=== PATIENT | male | born 1945 | race Two or more races ===

== ENCOUNTER 2019-03-01 17:30 | Emergency (ER) | payer MEDICAID, MEDICARE ==
--- NOTE | 2019-03-01 18:20 | ER Document Report ---
ED General - General Chief Complaint: Fall Stated Complaint: FALL/RIB PAIN Time Seen by Provider: 03/01/19 18:04 Primary Care Provider: LUÍS MEZA MD [Primary Care Provider] - Follow up in 3-5 days Notes: Patient is a 74-year-old male with history of end-stage renal disease on dialysis that presents to the emergency department for chief complaint of rib pain after fall. Patient apparently was walking with his walker trying to get back into the house and there is a small lip with a walker, he started losing his balance and fell backwards onto his right side. He is complaining of 7 out of 10 pain in the right ribs mainly in the mid posterior aspect. Describes as a constant aching worse with a deep breath. He did hit his head, but denies loss of consciousness. Denies having any neck pain, numbness, weakness or tingling. He denies any pain in his legs, denies any numbness, tingling or weakness in his upper or lower extremities. Denies any bowel or bladder incontinence. Past Medical History: End-stage renal disease on dialysis, hypertension Past Surgical History: Dialysis graft in the left upper extremity Social History: Lives at home with family, no current tobacco, alcohol or drug u se. Family History: Reviewed and noncontributory for presenting illness Allergies: Reviewed, see documented allergy list. REVIEW OF SYSTEMS: Other than noted above, the 12 point review of systems was reviewed with the patient and were negative, all pertinent findings are included in the HPI. PHYSICAL EXAMINATION: Vital signs reviewed, nursing noted reviewed. GENERAL: Elderly male, appears to be uncomfortable, but no acute distress HEAD: Atraumatic, normocephalic. EYES: Eyes appear normal, extraocular movements intact, sclera anicteric, conjunctiva are normal. ENT: nares patent, oropharynx clear without exudates. Moist mucous membranes. NECK: Normal range of motion, supple without lymphadenopathy LUNGS: Bilateral mild expiratory wheezing, suspect secondary to pulmonary edema, no acute respiratory distress however There is a right-sided posterior lateral rib tenderness to palpation, along ribs 7 through 10. No ecchymosis, or flail chest noted. HEART: Regular rate and rhythm without murmurs ABDOMEN: Soft, nontender, normoactive bowel sounds. No rebound, guarding, or rigidity. No masses appreciated. EXTREMITIES: Nontender, good range of motion, no pitting or edema. There is a left upper extremity dialysis graft present NEUROLOGICAL: No focal neurological deficits. Moves all extremities spontaneously Motor and sensory grossly intact on exam. PSYCH: Normal mood, normal affect. SKIN: Warm, Dry, normal turgor, no rashes or lesions noted on exposed skin Past Medical History - Social History Smoking Status: Former Smoker Family History: Reviewed & Not Pertinent Patient has suicidal ideation: No Patient has homicidal ideation: No Renal/ Medical History: Denies: Hx Peritoneal Dialysis Physical Exam - Vital signs Vitals: Temp Pulse Resp BP Pulse Ox 98.0 F 107 H 21 H 146/73 H 92 03/01/19 17:36 03/01/19 17:36 03/01/19 17:36 03/01/19 17:36 03/01/19 17:36 Course - Re-evaluation Re-evalutation: Patient seen and examined vital signs reviewed. Laboratory data and imaging were ordered as appropriate for the patient's presenting symptoms and complaint, with consideration of any critical or life threatening conditions that may be associated with their obtained history and exam as noted above. Patient was treated with oxy IR 5 mg for pain, and given incentive spirometer Results were reviewed when available and demonstrated 3 consecutive rib fractures in the right, the eighth ninth and 10th ribs. No pneumothorax., CT of the head and cervical spine were negative for acute fracture or injury or acute intracranial abnormality. The patient was re-evaluated and was stable, we did try to ambulate the patient, however he was not able to, and was still having pain is given an additional dose of oxycodone 5 mg p.o. Evaluation was most consistent with fall, closed head injury and the patient on Coumadin, and 3 consecutive rib fractures Results were discussed with the patient at this point after careful consideration I feel that that patient should be transferred to [facility], discussed with Dr. Pak, due to trauma patient, with 3 consecutive rib fractures. This was discussed with the patient that it is in the best interest for their care to be transferred, the risks and benefits of transfer were discussed, including but not limited to clinical deterioration during transport, respiratory distress, and potential for traumatic injuries. Patient agreed with this plan of care. *Note is created using voice recognition software and may contain spelling, syntax or grammatical errors. Ribs w/Chest X-Ray 03/01/19 18:05 IMPRESSION: Cardiomegaly. Cannot exclude pulmonary edema. Right rib fractures as described. Cervical Spine CT 03/01/19 18:30 IMPRESSION: Degenerative disc disease. Mild facet arthropathy. No acute finding. Head CT 03/01/19 18:30 IMPRESSION: MICROVASCULAR ISCHEMIA AND GENERALIZED ATROPHY. NO ACUTE IMAGING FINDINGS IN THE BRAIN. LEFT MAXILLARY SINUS DISEASE. EVIDENCE OF ACUTE STROKE: NO. Laboratory 03/01/19 03/01/19 03/01/19 23:30 23:30 23:30 WBC 7.4 RBC 3.26 L Hgb 9.6 L Hct 30.2 L MCV 93 MCH 29.4 MCHC 31.7 L RDW 20.7 H Plt Count 121 L Seg Neutrophils % 87.4 H Lymphocytes % 6.9 L Monocytes % 5.5 Eosinophils % 0.0 Basophils % 0.2 Absolute Neutrophils 6.5 Absolute Lymphocytes 0.5 Absolute Monocytes 0.4 Absolute Eosinophils 0.0 Absolute Basophils 0.0 PT 14.7 INR 1.10 Sodium 138.5 Potassium 5.2 H Chloride 98 Carbon Dioxide 30 Anion Gap 11 BUN 32 H Creatinine 4.72 H Est GFR ( Amer) 15 L Est GFR (Non-Af Amer) 12 L Glucose 184 H Calcium 8.8 Total Bilirubin 0.9 Direct Bilirubin 0.7 H Neonat Total Bilirubin Not Reportable Neonat Direct Bilirubin Not Reportable Neonat Indirect Bili Not Reportable AST 28 ALT 26 Alkaline Phosphatase 160 H Total Protein 7.9 Albumin 3.6 - Vital Signs Vital signs: Temp Pulse Resp BP Pulse Ox 99.0 F 105 H 15 136/87 H 95 03/01/19 23:43 03/01/19 23:43 03/01/19 23:43 03/01/19 23:43 03/01/19 23:43 - Laboratory Result Diagrams: 03/01/19 23:30 03/01/19 23:30 Laboratory results interpreted by me: 03/01/19 03/01/19 23:30 23:30 RBC 3.26 L Hgb 9.6 L Hct 30.2 L MCHC 31.7 L RDW 20.7 H Plt Count 121 L Seg Neutrophils % 87.4 H Lymphocytes % 6.9 L Potassium 5.2 H BUN 32 H Creatinine 4.72 H Est GFR ( Amer) 15 L Est GFR (Non-Af Amer) 12 L Glucose 184 H Direct Bilirubin 0.7 H Alkaline Phosphatase 160 H Procedures - Joint Reduction/Fracture Care Right Notes: Fracture care with incentive spirometry and pain control rendered in the emergency department of right rib fractures 8,9, and 10. Critical Care Note - Critical Care Note Total time excluding time spent on procedures (mins): 35 Comments: Critical care time 35 minutes exclusive from separate billable procedures for a patient requiring complex medical decision making, and high potential for clinical deterioration. The patient on Coumadin, with close head injury, trauma patient with multiple rib fractures, requiring transfer to tertiary facility. Time spent obtaining history from patient or surrogate, discussions with consultants, development of treatment plan with patient or surrogate, evaluation of patient's response to treatment, examination of patient, ordering and performing treatments and interventions, ordering and review of laboratory studies, re-evaluation of patient's condition, ordering and review of radiographic studies and review of old charts Discharge - Discharge Clinical Impression: Ribs, multiple fractures Qualifiers: Encounter type: initial encounter Fracture type: closed Laterality: right Qualified Code(s): S22.41XA - Multiple fractures of ribs, right side, initial encounter for closed fracture Condition: Stable Disposition: [facility] Additional Instructions: Please use the incentive spirometer, 10 times every hour, to reduce the risk of pneumonia, please take the pain medication as directed, so that you are able to take nice deep breaths. Please follow-up with your primary care physician in 2 to 3 days to be checked upon. If you have worsening pain or is not controlled at home or if you develop worsening breathing issues, or fever please return to the emergency department sooner. Prescriptions: Oxycodone HCl [Oxycontin Ir 5 Mg Tablet] 5 mg PO Q6H PRN #15 tablet PRN Reason: rib pain Referrals: LUÍS MEZA MD [Primary Care Provider] - Follow up in 3-5 days
[2019-03-01] MEDS ORDERED: OXYCODONE HCL IR 5 MG TABLET PO ONE ×2 (18:30→21:40)
--- NOTE | 2019-03-01 19:21 | RADIOLOGY REPORT (SQ) ---
EXAM DESCRIPTION: RIBS RIGHT W/PA CHEST COMPLETED DATE/TIME: 03/01/2019 6:23 pm REASON FOR STUDY: fall, right rib pain COMPARISON: None. TECHNIQUE: Frontal view of the chest and additional views of the right ribs acquired. NUMBER OF VIEWS: Three view. LIMITATIONS: None. FINDINGS: FRONTAL CXR: Cardiomegaly. Pulmonary vascular congestion. Cannot exclude pulmonary edema . RIBS: There are fractures of the right 8th, 9th, and 10th ribs. OTHER: No other significant finding. IMPRESSION: Cardiomegaly. Cannot exclude pulmonary edema. Right rib fractures as described. COMMENT: SITE OF TRAUMA/COMPLAINT MARKED/STAMP COMPLETED: No TECHNICAL DOCUMENTATION: JOB ID: [id number] [employer]- All Rights Reserved Reading location - IP/workstation name: [email or web address]
--- NOTE | 2019-03-01 19:27 | RADIOLOGY REPORT (SQ) ---
EXAM DESCRIPTION: CT HEAD WITHOUT COMPLETED DATE/TIME: 03/01/2019 6:58 pm REASON FOR STUDY: fall, head injury on coumadin COMPARISON: None. TECHNIQUE: Axial images acquired through the brain without intravenous contrast. Images reviewed wi th bone, brain and subdural windows. Additional sagittal and coronal reconstructions were generated. Images stored on PACS. All CT scanners at this facility use dose modulation, iterative reconstruction, and/or weight based d osing when appropriate to reduce radiation dose to as low as reasonably achievable (ALARA). [facility]: Dose Right [facility]: CareDose [facility]: Dose Right [facility]: Teradose 4D [facility]: [employer] RADIATION DOSE: CT Rad equipment meets quality standard of care and radiation dose reduction techniq ues were employed. CTDIvol: 53.2 mGy. DLP: 911 mGy-cm. mGy. LIMITATIONS: None. FINDINGS: VENTRICLES: Prominent ventricles secondary to involutional atrophy. CEREBRUM: Cortical atrophy. No masses. No hemorrhage. No midline shift. No evidence for acute inf arction. Few scattered areas of low density in the white matter most likely chronic small vessel isch emic changes. CEREBELLUM: No masses. No hemorrhage. No alteration of density. No evidence for acute infarction. EXTRAAXIAL SPACES: No fluid collections. No masses. ORBITS AND GLOBE: No intra- or extraconal masses. Normal contour of globe without masses. CALVARIUM: No fracture. PARANASAL SINUSES: There is opacification of the left maxillary sinus. SOFT TISSUES: No mass or hematoma. OTHER: No other significant finding. IMPRESSION: MICROVASCULAR ISCHEMIA AND GENERALIZED ATROPHY. NO ACUTE IMAGING FINDINGS IN THE BRAIN. LEFT MAXILLARY SINUS DISEASE. EVIDENCE OF ACUTE STROKE: NO. COMMENT: Quality ID # [id number]: Final reports with documentation of one or more dose reduction techniques (e.g., Automated exposure control, adjustment of the mA and/or kV according to patient size, use of iterative reconstruction technique) TECHNICAL DOCUMENTATION: JOB ID: [id number] [employer]- All Rights Reserved Reading location - IP/workstation name: [email or web address]
--- NOTE | 2019-03-01 19:29 | RADIOLOGY REPORT (SQ) ---
EXAM DESCRIPTION: CT CERVICAL SPINE WITHOUT COMPLETED DATE/TIME: 03/01/2019 6:58 pm REASON FOR STUDY: fall, head injury COMPARISON: None. TECHNIQUE: Axial images acquired through the cervical spine without intravenous contrast. Images re viewed with lung, soft tissue and bone windows. Reconstructed coronal and sagittal MPR images review ed. Images stored on PACS. All CT scanners at this facility use dose modulation, iterative reconstruction, and/or weight based d osing when appropriate to reduce radiation dose to as low as reasonably achievable (ALARA). [facility]: Dose Right [facility]: CareDose [facility]: Dose Right [facility]: Teradose 4D [facility]: [employer] RADIATION DOSE: CT Rad equipment meets quality standard of care and radiation dose reduction techniq ues were employed. CTDIvol: 23.9 mGy. DLP: 457 mGy-cm. mGy. LIMITATIONS: None. FINDINGS: ALIGNMENT: Anatomic. MINERALIZATION: Normal. VERTEBRAL BODIES: No fractures or dislocation. DISCS: C5-6 disc space is narrowed. FACETS, LATERAL MASSES, POSTERIOR ELEMENTS: Mild facet hypertrophy at C2-3 on the right. HARDWARE: None in the spine. VISUALIZED RIBS: No fractures. LUNG APICES AND SOFT TISSUES: No significant or acute findings. OTHER: No other significant finding. IMPRESSION: Degenerative disc disease. Mild facet arthropathy. No acute finding. TECHNICAL DOCUMENTATION: JOB ID: [id number] Quality ID # [id number]: Final reports with documentation of one or more dose reduction techniques (e.g., Au tomated exposure control, adjustment of the mA and/or kV according to patient size, use of iterative reconstruction technique) 2010 [employer]- All Rights Reserved Reading location - IP/workstation name: [email or web address]
[2019-03-01] MEDS ORDERED: HYDROCODONE/ACETAMINOPHEN 5-325 MG (6 TAB/ER DISP) PO PRN (21:16)
[2019-03-01] MEDS ORDERED: MORPHINE SULFATE 10 MG/ML INJ IM ONE (21:57)
[2019-03-01 23:54] LABS: ABSOLUTE LYMPHOCYTES (AUTO) 0.5 10^3/uL (0.5-4.7); ABSOLUTE MONOCYTES (AUTO) 0.4 10^3/uL (0.1-1.4); ABSOLUTE NEUT (AUTO) 6.5 10^3/uL (1.7-8.2); BASOPHILS % (AUTO) 0.2 % (0-2); HEMATOCRIT 30.2 % (37.9-51.0); HEMOGLOBIN 9.6 g/dL (13.5-17.0); LYMPHOCYTES % (AUTO) 6.9 % (13-45); MEAN CORPUSCULAR HEMOGLOBIN 29.4 pg (27.0-33.4); MEAN CORPUSCULAR HGB CONC 31.7 g/dL (32.0-36.0); MEAN CORPUSCULAR VOLUME 93 fl (80-97); MONOCYTES % (AUTO) 5.5 % (3-13); PLATELET COUNT 121 10^3/uL (150-450); RED BLOOD COUNT 3.26 10^6/uL (4.35-5.55); RED CELL DISTRIBUTION WIDTH 20.7 % (11.5-14.0); SEGMENTED NEUTROPHILS % (AUTO) 87.4 % (42-78); TOTAL CELLS COUNTED % (AUTO) 100 %; WHITE BLOOD COUNT 7.4 10^3/uL (4.0-10.5)
[2019-03-02 00:08] LABS: PROTHROMBIN TIME 14.7 SEC (11.4-15.4)
[2019-03-02 00:11] LABS: ALANINE AMINOTRANSFERASE 26 U/L (21-72); ALBUMIN 3.6 g/dL (3.5-5.0); ALKALINE PHOSPHATASE 160 U/L (38-126); ANION GAP 11 (5-19); ASPARTATE AMINO TRANSFERASE 28 U/L (17-59); BILIRUBIN,DIRECT 0.7 mg/dL (0.0-0.4); BILIRUBIN,TOTAL 0.9 mg/dL (0.2-1.3); BLOOD UREA NITROGEN 32 mg/dL (7-20); CALCIUM 8.8 mg/dL (8.4-10.2); CARBON DIOXIDE 30 mmol/L (22-30); CHLORIDE 98 mmol/L (98-107); GLUCOSE 184 mg/dL (75-110); POTASSIUM 5.2 mmol/L (3.6-5.0); SODIUM 138.5 mmol/L (137-145); TOTAL PROTEIN 7.9 g/dL (6.3-8.2)
[2019-03-02 00:25] VITALS: BP 136/87
== END 2019-03-01 23:43 | disposition short-term general hospital (02) ==
LOC: ER 17:30
DX: S22.41XA Multiple fractures of ribs, right side, initial encounter for closed fracture (principal); R07.81 Pleurodynia; I12.0 Hypertensive chronic kidney disease with stage 5 chronic kidney disease or end stage renal disease; E11.22 Type 2 diabetes mellitus with diabetic chronic kidney disease; N18.6 End stage renal disease; Z99.2 Dependence on renal dialysis; W19.XXXA Unspecified fall, initial encounter; Z87.891 Personal history of nicotine dependence
CPT/HCPCS: 99291; 96372; 36415; 85025; 85610; 80053; 71101; 70450; 72125; J2270; A9270